=== PATIENT | male | born 1985 | race Two or more races ===

== ENCOUNTER → 2019-02-12 | Outpatient (CLI) | payer OTHER ==
--- NOTE | 2019-02-12 13:15 | RADIOLOGY REPORT (SQ) ---
EXAM DESCRIPTION: MRI LT LOWER JOINT WITHOUT COMPLETED DATE/TIME: 02/12/2019 10:58 am REASON FOR STUDY: PAIN IN LEFT KNEE M25.562 M25.562 PAIN IN LEFT KNEE COMPARISON: None. TECHNIQUE: Leftknee images acquired and stored on PACS. Multiplanar images include fat sensitive se quences as T1, water sensitive sequences as FST2 or STIR, cartilage sensitive sequences as FSPD, and gradient echo sequences. LIMITATIONS: Metal artifact. FINDINGS: JOINT AND BURSAE: No effusion. BONE CORTEX AND MARROW: No alteration of signal to suggest marrow replacement. No worrisome bone lesi ons. No occult fracture. ACL: Prior reconstruction. Limited evaluation due to metal artifact. PCL: Intact. MCL: Intact. No periligamentous edema or fluid. LCL: Intact. No periligamentous edema or fluid. MEDIAL MENISCUS: Medial extrusion. Very little normal remaining meniscal tissue which is limited to the anterior horn. LATERAL MENISCUS: No tears. No abnormal signal. MEDIAL COMPARTMENT: Large osteophytes. LATERAL COMPARTMENT: Moderate osteophytes. PATELLA: Cartilage thinning especially medial margin of the patella. Small osteophytes. EXTENSOR MECHANISM: Intact. Quadriceps and patella tendons normal. SOFT TISSUES: Adjacent muscles and subcutaneous tissues normal. Normal flow void in popliteal artery and vein. OTHER: No other significant finding. IMPRESSION: 1. Extensive artifact associated with ACL reconstruction. There is limited evaluation of the graft. 2. Chronic tear posterior horn medial meniscus extending into the body. 3. Osteoarthritis, more advanced in the medial compartment. TECHNICAL DOCUMENTATION: JOB ID: [id number] [employer]- All Rights Reserved Reading location - IP/workstation name: [email or web address]
== END ==
LOC: RAD 11:27
PROVIDERS: ATTEND Physician Assistant Medical
DX: M25.562 Pain in left knee (principal); M23.222 Derangement of posterior horn of medial meniscus due to old tear or injury, left knee; M17.12 Unilateral primary osteoarthritis, left knee